=== PATIENT | female | born 1950 | race African-American/Black ===

== ENCOUNTER 2021-04-26 01:57 | Inpatient (IN) | payer MEDICARE, MEDICAID ==
[~2021-04-26] VITALS: Ht 167.6 cm; Wt 82.6 kg
[2021-04-26 03:42] LABS: BG BASE EXCESS 3.6 mmol/L (-2.0-2.0); BG CARBOXYHEMOGLOBIN 0.5 % (0.5-1.5); BG DEOXYHEMOGLOBIN 4.5 % (0.0-5.0); BG FRACTION INSPIRED OXYGEN 21; BG HCO3 ACT 28.9 mmol/L (22.0-26.0); BG METHEMOGLOBIN 0.3 % (0.0-1.5); BG OXYGEN SATURATION 95.5 % (92.0-98.5); BG OXYHEMOGLOBIN 94.7 % (94.0-97.0); BG PCO2 47.1 mmHg (35.0-45.0); BG PH 7.405 (7.350-7.450); BG PO2 83.1 mmHg (75.0-100.0); BG SAMPLE SITE RIGHT RADIAL; BG TOTAL HEMOGLOBIN 10.5 g/dL (12.0-18.0); BG VENT MODE ROOM AIR
[2021-04-26 03:47] LABS: BASOPHILS % 0.6 % (0.0-2.0); EOSINOPHILS % 6.4 % (0.0-5.0); HEMATOCRIT. 32.5 % (36.0-48.0); HEMOGLOBIN. 10.8 g/dL (12.0-16.0); LYMPHOCYTES % 22.3 % (20.0-50.0); MEAN CORPUSCULAR HEMOGLOBIN 31.5 pg (28.0-32.0); MEAN CORPUSCULAR VOLUME 95.2 fL (81.0-99.0); MEAN PLATELET VOLUME 7.8 fl (7.4-10.4); MONOCYTES % 6.1 % (2.0-8.0); NEUTROPHILS % 64.6 % (40.0-76.0); PLATELET 192 x1000/uL (130-400); RED BLOOD CELL COUNT 3.41 mill/uL (4.2-5.4); RED CELL DISTRIBUTION WIDTH 17.7 % (11.6-14.6)
[2021-04-26 03:56] LABS: CHLORIDE 102 mEq/L (98-107)
[2021-04-26 04:14] LABS: PROTHROMBIN TIME 10.7 sec (9.6-11.0)
[2021-04-26] MEDS ORDERED: SODIUM BICARBONATE 8.4% 1 MEQ/ML 50ML SYR IV SCH (04:15)
[2021-04-26] MEDS ORDERED: DEXTROSE 50% WATER 50ML SYRINGE IV SCH (04:15)
[2021-04-26] MEDS ORDERED: INSULIN REGULAR (HUMULIN R) 300UNITS/3ML VIAL IV SCH (04:15)
[2021-04-26] MEDS ORDERED: ONDANSETRON HCL 4MG/2ML INJ IV PRN ×2 (08:30→10:00)
[2021-04-26] MEDS ORDERED: SODIUM POLYSTYRENE SULFONATE 15 G/60 ML BOT PO NR (08:45)
[2021-04-26] MEDS: NIFEDIPINE XL 60MG TAB PO SCH (09:17)
[2021-04-26 12:00] VITALS: BP 167/102
[2021-04-26 13:31] LABS: HEPATITIS B SURFACE ANTIGEN NEGATIVE
[2021-04-26 14:37] VITALS: BP 175/95
[2021-04-26 16:00] VITALS: BP 100/67
[2021-04-26 17:01] LABS: BG CARBOXYHEMOGLOBIN 0.8 % (0.5-1.5); BG DEOXYHEMOGLOBIN 6.5 % (0.0-5.0); BG HCO3 ACT 28.3 mmol/L (22.0-26.0); BG METHEMOGLOBIN 0.2 % (0.0-1.5); BG OXYGEN SATURATION 93.4 % (92.0-98.5); BG OXYHEMOGLOBIN 92.5 % (94.0-97.0); BG PCO2 46.7 mmHg (35.0-45.0); BG PO2 70.6 mmHg (75.0-100.0); BG SAMPLE SITE RIGHT RADIAL; BG TOTAL HEMOGLOBIN 10.4 g/dL (12.0-18.0); BG VENT MODE ROOM AIR
[2021-04-26 20:00] VITALS: BP_SYST 138; BP_SYST 147; BP_DIAS 62; BP_DIAS 69
[2021-04-27] VITALS (7 sets, daily range): BP systolic 115–192; BP diastolic 63–99
[2021-04-27 07:19] LABS: HEMATOCRIT. 30.4 % (36.0-48.0); MEAN CORPUSCULAR VOLUME 97.1 fL (81.0-99.0); RED BLOOD CELL COUNT 3.13 mill/uL (4.2-5.4)
[2021-04-27 08:03] LABS: PHOSPHORUS 6.7 mg/dL (2.5-4.9)
[2021-04-27] MEDS: NIFEDIPINE XL 60MG TAB PO SCH (08:49)
[2021-04-27 14:26] LABS: PLATELET ESTIMATE NORMAL
[2021-04-27 14:28] LABS: MEAN PLATELET VOLUME 8.4 fl (7.4-10.4); PLATELET 185 x1000/uL (130-400)
[2021-04-27] MEDS: CLONIDINE 0.2MG TABLET PO PRN (20:30)
[2021-04-27] MEDS: ACETAMINOPHEN 325MG TABLET PO PRN (22:07)
[2021-04-28] VITALS: BP 124/53
[2021-04-28 04:00] VITALS: BP 136/62
[2021-04-28 08:00] VITALS: BP 155/105
[2021-04-28] MEDS: NIFEDIPINE XL 60MG TAB PO SCH (08:19)
[2021-04-28 10:14] LABS: PHOSPHORUS 7.5 mg/dL (2.5-4.9)
[2021-04-28 10:19] LABS: BASOPHILS % 0.9 % (0.0-2.0); EOSINOPHILS % 8.6 % (0.0-5.0); HEMOGLOBIN. 8.9 g/dL (12.0-16.0); LYMPHOCYTES % 31.4 % (20.0-50.0); MEAN CORPUSCULAR HEMOGLOBIN 31.5 pg (28.0-32.0); MEAN CORPUSCULAR VOLUME 95.2 fL (81.0-99.0); MONOCYTES % 6.8 % (2.0-8.0); NEUTROPHILS % 52.3 % (40.0-76.0); PLATELET 170 x1000/uL (130-400); RED BLOOD CELL COUNT 2.83 mill/uL (4.2-5.4); RED CELL DISTRIBUTION WIDTH 17.1 % (11.6-14.6)
[2021-04-28 12:00] VITALS: BP 171/72
[2021-04-28] MEDS: SEVELAMER CARBONATE 800 MG TABLET PO SCH ×2 (13:34→17:52)
[2021-04-28 16:00] VITALS: BP 141/77
[2021-04-28 20:00] VITALS: BP 169/90
[2021-04-28] MEDS: CLONIDINE 0.2MG TABLET PO PRN (20:43)
[2021-04-28] MEDS: ACETAMINOPHEN 325MG TABLET PO PRN (23:18)
[2021-04-29 04:00] VITALS: BP 157/64
[2021-04-29] MEDS: SEVELAMER CARBONATE 800 MG TABLET PO SCH ×3 (06:39→18:18)
[2021-04-29 08:00] VITALS: BP 133/56
[2021-04-29] MEDS: NIFEDIPINE XL 60MG TAB PO SCH (08:52)
[2021-04-29 09:26] LABS: BASOPHILS % 0.8 % (0.0-2.0); EOSINOPHILS % 8.4 % (0.0-5.0); HEMATOCRIT. 26.8 % (36.0-48.0); LYMPHOCYTES % 28.9 % (20.0-50.0); MEAN CORPUSCULAR HEMOGLOBIN 31.8 pg (28.0-32.0); MEAN CORPUSCULAR VOLUME 94.8 fL (81.0-99.0); MEAN PLATELET VOLUME 8.1 fl (7.4-10.4); MONOCYTES % 7.5 % (2.0-8.0); NEUTROPHILS % 54.4 % (40.0-76.0); PLATELET 162 x1000/uL (130-400); RED BLOOD CELL COUNT 2.83 mill/uL (4.2-5.4); RED CELL DISTRIBUTION WIDTH 17.2 % (11.6-14.6)
[2021-04-29 12:00] VITALS: BP 134/54
[2021-04-29 13:26] LABS: PHOSPHORUS 5.8 mg/dL (2.5-4.9)
[2021-04-29 16:00] VITALS: BP 168/71
[2021-04-29] MEDS: CLONIDINE 0.2MG TABLET PO PRN (18:18)
[2021-04-29 20:00] VITALS: BP 173/72
[2021-04-29] MEDS: ACETAMINOPHEN 325MG TABLET PO PRN (20:12)
[2021-04-30] VITALS (7 sets, daily range): BP systolic 149–190; BP diastolic 60–71
[2021-04-30] MEDS: CLONIDINE 0.2MG TABLET PO PRN (01:39)
[2021-04-30] MEDS: SEVELAMER CARBONATE 800 MG TABLET PO SCH ×3 (05:46→19:00)
[2021-04-30 07:03] LABS: BASOPHILS % 0.9 % (0.0-2.0); EOSINOPHILS % 8.8 % (0.0-5.0); HEMATOCRIT. 27.6 % (36.0-48.0); HEMOGLOBIN. 9.2 g/dL (12.0-16.0); MEAN CORPUSCULAR HEMOGLOBIN 31.6 pg (28.0-32.0); MEAN CORPUSCULAR VOLUME 94.6 fL (81.0-99.0); MEAN PLATELET VOLUME 7.9 fl (7.4-10.4); MONOCYTES % 6.6 % (2.0-8.0); NEUTROPHILS % 44.7 % (40.0-76.0); PLATELET 175 x1000/uL (130-400); RED BLOOD CELL COUNT 2.91 mill/uL (4.2-5.4); RED CELL DISTRIBUTION WIDTH 16.8 % (11.6-14.6)
[2021-04-30 07:23] LABS: PHOSPHORUS 6.6 mg/dL (2.5-4.9)
[2021-04-30] MEDS: NIFEDIPINE XL 60MG TAB PO SCH (09:44)
[2021-04-30] MEDS ORDERED: HYDRALAZINE HCL 50MG TABLET PO SCH ×2 (12:00→22:00)
[2021-04-30] MEDS ORDERED: NIFEDIPINE XL 60MG TAB PO SCH (21:00)
[2021-05-01] VITALS: BP 165/68
[2021-05-01] MEDS: CLONIDINE 0.2MG TABLET PO PRN (00:20)
== END 2021-05-01 03:55 | disposition home or self-care (01) | DRG 73 ==
LOC: ER 01:57 → MICUSO 05:08 → 7EST 12:19
PROVIDERS: ADMIT Internal Medicine; ATTEND Internal Medicine
PROC: 5A1D70Z Performance of Urinary Filtration, Intermittent, Less than 6 Hours Per Day (ICD-10-PCS; principal; 2021-04-26)
PROC: 5A1D70Z Performance of Urinary Filtration, Intermittent, Less than 6 Hours Per Day (ICD-10-PCS; 2021-04-28)
PROC: 5A1D70Z Performance of Urinary Filtration, Intermittent, Less than 6 Hours Per Day (ICD-10-PCS; 2021-04-30)
DX: G90.8 Other disorders of autonomic nervous system (principal); N18.6 End stage renal disease; I12.0 Hypertensive chronic kidney disease with stage 5 chronic kidney disease or end stage renal disease; E87.5 Hyperkalemia; D64.9 Anemia, unspecified; E11.22 Type 2 diabetes mellitus with diabetic chronic kidney disease; E78.5 Hyperlipidemia, unspecified; Z20.822 Contact with and (suspected) exposure to COVID-19; J45.909 Unspecified asthma, uncomplicated; Z82.49 Family history of ischemic heart disease and other diseases of the circulatory system; Z86.73 Personal history of transient ischemic attack (TIA), and cerebral infarction without residual deficits; Z99.2 Dependence on renal dialysis; Z79.899 Other long term (current) drug therapy
CPT/HCPCS: 36415; 36600; 70551; 71045; 80048; 80053; 82140; 82375; 82805; 82962; 83605; 83735; 84100; 84484; 85025; 86705; 86706; 86709; 86803; 86850; 86900; 87340; 87426; 93005; 97162; 97530; 99291; J1815; J2405; J3490